=== PATIENT | female | born 1970 | race Caucasian/White ===

== ENCOUNTER 2018-01-08 11:35 | Emergency (ER) | payer MEDICAID ==
[2018-01-08 11:47] VITALS: BMI 24.6
[2018-01-08 11:55] VITALS: O2SAT 97
--- NOTE | 2018-01-08 13:07 | C.PDOC ---
History Of Present Illness Patient is a 47 y/o female who presents to the ED with complaints of vertigo and lightheadedness intermittently for the last 2 years. Patient was referred to an unknown ENT specialist, but never followed through due to losing referral. Patient notes ringing in ears; denies any present headache. Patient also notes unrelated right shoulder pain for which she takes a muscle relaxer for. Patient is prescribed meclizine and takes when needed. No other physical complaints at this time. 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 #[id number]) History/Exam Limitations: no limitations Onset/Duration Of Symptoms: Days (2 years), Intermittent Episodes Current Symptoms Are (Timing): Still Present Associated Symptoms Preceding Syncopal Episode: Lightheadedness, Vertigo Fall Associated With With Symptoms: No Recent travel outside of the [place]: No Past Medical History Reviewed: Historical Data, Nursing Documentation, Vital Signs Vital Signs: Last Vital Signs Temp 98.1 F 01/08/18 14:24 Pulse 58 L 01/08/18 14:24 Resp 17 01/08/18 14:24 BP 99/60 L 01/08/18 14:24 Pulse Ox 97 01/08/18 18:41 - Medical History PMH: Anxiety, HTN, Hypercholesterolemia Surgical History: Appendectomy Family History: States: No Known Family Hx - Social History Hx Tobacco Use: No Hx Alcohol Use: No Hx Substance Use: No - Immunization History Hx Tetanus Toxoid Vaccination: No Hx Influenza Vaccination: No Hx Pneumococcal Vaccination: No Review Of Systems Gastrointestinal: Negative for: Nausea, Vomiting Musculoskeletal: Positive for: Shoulder Pain Neurological: Positive for: Dizziness, Other (vertigo). Negative for: Headache Physical Exam - Physical Exam Appears: Well, Non-toxic, No Acute Distress Skin: Normal Color, Warm, Dry Head: Atraumatic, Normacephalic Eye(s): bilateral: Normal Inspection (no nystagmus), PERRL, EOMI Oral Mucosa: Moist Throat: Normal, No Erythema, No Exudate Neck: Supple Cardiovascular: Rhythm Regular, No Murmur, Other (regular rate) Respiratory: Normal Breath Sounds, No Rales, No Rhonchi, No Wheezing Gastrointestinal/Abdominal: Soft, No Tenderness, No Guarding, No Rebound Back: No CVA Tenderness Extremity: Normal ROM (x4), No Tenderness (to right shoulder area), No Swelling Neurological/Psych: Oriented x3, Normal Speech, Normal Cognition, Normal Cranial Nerves, No Cerebellar Signs, Normal Motor, Normal Sensation, Other (no focal deficits) Gait: Steady ED Course And Treatment - Laboratory Results Result Diagrams: 01/08/18 13:11 01/08/18 13:11 O2 Sat by Pulse Oximetry: 97 - CT Scan/US Head CT Other Rad Studies (CT/US): Interpreted By Me, Read By Radiologist CT/US Interpretation: PROCEDURE: CT HEAD WITHOUT CONTRAST. HISTORY: dizzy. COMPARISON: Comparison is made with 05/09/2015. TECHNIQUE: Axial computed tomography images were obtained through the head/brain without intravenous contrast. Radiation dose: Total exam DLP = 680.52 mGy-cm. This CT exam was performed using one or more of the following dose reduction techniques: Automated exposure control, adjustment of the mA and/or kV according to patient size, and/or use of iterative reconstruction technique. FINDINGS: HEMORRHAGE: No intracranial hemorrhage. BRAIN: No mass effect or edema. No atrophy or chronic microvascular ischemic changes. VENTRICLES: Unremarkable. No hydrocephalus. CALVARIUM: Unremarkable. PARANASAL SINUSES: Unremarkable as visualized. No significant inflammatory changes. MASTOID AIR CELLS: Unremarkable as visualized. No inflammatory changes. OTHER FINDINGS: None. IMPRESSION: No evidence of acute intracranial hemorrhage mass effect or midline shift. No significant interval change since the previous exam noted. Progress Note: Blood work and urine culture ordered. Medical Decision Making Medical Decision Making: pt feeling much better after meclizine. head ct neg for any acute changes. pt now reports she was concerned about her blood pressure possibly being elevated because she felt dizzy. discussed with patient the need to see ent for tinnitus and vertigo. pt and partner express understanding. Disposition Counseled Patient/Family Regarding: Studies Performed, Diagnosis, Need For Followup - Disposition Referrals: Yenni Monroe MD [Staff Provider] - [facility] [Outside] Disposition: HOME/ ROUTINE Disposition Time: 14:28 Condition: IMPROVED Additional Instructions: Llame a la dianaa nicola para concertar la catrachita ms cercana con el Dr. Monroe para que lo deriven al especialista en [place]. (Dr. Sharma). [place] meclizina para mareos segn lo prescrito; si muy mareado. puede gloria carolyn tableta extra. Regrese a la ana de emergencias por cualquier empeoramiento de los sntomas. Radha mayor cantidad de lquidos Instructions: Tinnitus (Ringing in the Ears), Vertigo (a Type of Dizziness) (DC ) Forms: Gen Discharge Inst Thai, [employer] (Thai) Print Language: ENGLISH - Clinical Impression Clinical Impression: Dizziness, Tinnitus, right ear - Scribe Statement The provider has reviewed the documentation as recorded by the Scribe Mariann Bonds All medical record entries made by the Scribe were at my direction and personally dictated by me. I have reviewed the chart and agree that the record accurately reflects my personal performance of the history, physical exam, medical decision making, and the department course for this patient. I have also personally directed, reviewed, and agree with the discharge instructions and disposition.
[2018-01-08 13:16] LABS: BASO # 0.1 K/uL (0.0-0.2); BASO % 0.7 % (0.0-2.0); EOS # 0.3 K/uL (0.0-0.7); EOS % 3.6 % (0.0-4.0); HEMOGLOBIN 13.1 g/dL (11.0-16.0); LYMPH # 3.1 K/uL (1.0-4.3); MEAN CELL VOLUME 85.6 fL (81.0-99.0); MEAN CORPUSCULAR HEMOGLOBIN 29.8 pg (27.0-31.0); MEAN CORPUSCULAR HGB CONC 34.8 g/dL (33.0-37.0); MEAN PLATELET VOLUME 8.9 fL (7.2-11.7); MONO # 0.8 K/uL (0.0-0.8); MONO % 9.7 % (0.0-10.0); NEUT # 4.1 K/uL (1.8-7.0); RBC 4.39 Mil/uL (3.80-5.20); RED CELL DISTRIBUTION WIDTH 12.5 % (11.5-14.5); WHITE BLOOD COUNT 8.4 K/uL (4.8-10.8)
[2018-01-08 13:18] LABS: SQUAMOUS EPITHIAL < 1 /hpf (0-5); URINE BILIRUBIN NEGATIVE (NEGATIVE); URINE BLOOD NEGATIVE (NEGATIVE); URINE CLARITY Clear (Clear); URINE COLOR Colorless (YELLOW); URINE GLUCOSE (UA) NORMAL (Normal); URINE LEUKOCYTE ESTERASE NEG Leu/uL (Negative); URINE PROTEIN NEGATIVE (NEGATIVE); URINE UROBILINOGEN NORMAL mg/dL (0.2-1.0)
[2018-01-08 13:30] LABS: ALB/GLOB RATIO 0.9 (1.0-2.1); ALBUMIN 3.9 g/dL (3.5-5.0); AST/SGOT 30 U/L (14-36); BLOOD UREA NITROGEN 9 mg/dL (7-17); CALCIUM 9.6 mg/dl (8.6-10.4); GFR AFRICAN-AMERICAN > 60; GFR NON-AFRICAN AMERICAN > 60
[2018-01-08 13:38] LABS: ALT/SGPT 22 U/L (9-52)
--- NOTE | 2018-01-08 14:10 | CT ---
PROCEDURE: CT HEAD WITHOUT CONTRAST. HISTORY: dizzy COMPARISON: Comparison is made with 05/09/2015 TECHNIQUE: Axial computed tomography images were obtained through the head/brain without intravenous contrast. Radiation dose: Total exam DLP = 680.52 mGy-cm. This CT exam was performed using one or more of the following dose reduction techniques: Automated exposure control, adjustment of the mA and/or kV according to patient size, and/or use of iterative reconstruction technique. FINDINGS: HEMORRHAGE: No intracranial hemorrhage. BRAIN: No mass effect or edema. No atrophy or chronic microvascular ischemic changes. VENTRICLES: Unremarkable. No hydrocephalus. CALVARIUM: Unremarkable. PARANASAL SINUSES: Unremarkable as visualized. No significant inflammatory changes. MASTOID AIR CELLS: Unremarkable as visualized. No inflammatory changes. OTHER FINDINGS: None. IMPRESSION: No evidence of acute intracranial hemorrhage mass effect or midline shift. No significant interval change since the previous exam noted.
[2018-01-08 14:25] VITALS: BP 99/60; PULSE 58; RESP 17; TEMP 98.1
== END 2018-01-08 14:51 | disposition home or self-care (01) ==
LOC: C.ER 11:35
DX: R42 Dizziness and giddiness (principal); H93.11 Tinnitus, right ear